=== PATIENT | female | born 1975 | race Caucasian/White ===

== ENCOUNTER 2023-07-19 03:21 | Emergency (ER) | payer OTHER, SELFPAY ==
[2023-07-19 03:26] VITALS: BP 132/84; PULSE 84; RESP 16; TEMP 36.3; O2SAT 99
--- NOTE | 2023-07-19 03:39 | CRLHL7_ITS ---
For Patients: As a result of the Century Cures Act, medical imaging exams and procedure reports are released immediately into your electronic medical record. You may view this report before your referring provider. If you have questions, please contact your health care provider. INDICATION: Syncope. Loss of consciousness. TECHNIQUE: CT head without contrast. COMPARISON: None. FINDINGS: CSF spaces: Within normal limits for age. Brain parenchyma and extra-axial spaces: The crouch-white differentiation is normal. No sign of mass, hemorrhage, or midline shift. No extra-axial fluid collection. Skull base and calvarium: The visualized paranasal sinuses and mastoid air cells demonstrate no acute or significant findings. The visualized orbits are grossly unremarkable. No skull fractures. IMPRESSION: Unremarkable noncontrast head CT. Please note that all CT scans at this facility use dose modulation, iterative reconstruction, and/or weight-based dosing when appropriate to reduce radiation dose to as low as reasonably achievable. Dictated by Emiliano Ventura MD @ 07/19/2023 4:45:59 AM (Electronically Signed)
--- NOTE | 2023-07-19 03:40 | ED.SYNCOPE ---
HPI - Syncope General Chief Complaint: Syncope/Fainted Stated Complaint: Syncope Time Seen by Provider: 07/19/23 03:39 History of Present Illness HPI narrative: Patient is a 47-year-old woman who was sleeping and got up to apparently use the restroom and lost consciousness skin and fell to the ground. She is not injured in any way. She has had no fevers no chills no night sweats no neurologic symptoms since the episode. She was helped up by her but is brought in by EMS. She has had no similar symptoms previously and has very little recall of the knee injury. Patient has had no similar symptoms. She now feels fine. The episode occurred immediately prior to coming in. She is not have any seizure activity or postictal symptoms. Patient did take her melatonin THC gummy approximately 3 hours ago. Related Data Home Medications Medication Instructions Recorded Confirmed diazepam 5 mg tablet 5 mg PO DAILY PRN 07/19/23 07/19/23 prednisone 10 mg tablet PO 07/19/23 Allergies Allergy/AdvReac Type Severity Reaction Status Date / Time No Known Drug Allergies Allergy Verified 06/24/23 15:44 Review of Systems Status of ROS: Reports: 10 or more systems reviewed and unremarkable except as noted in History and below [facility] Medical History (Updated 07/19/23 @ 04:58 by Anirudh Shultz MD) Menieres disease ?H81.09 - Meniere's disease, unspecified ear (ICD-10) Social History Smoking Status: Never smoker Second hand tobacco smoke exposure: No Non-prescribed substance use: marijuana (any form) service: No Exam Narrative: Exam Narrative: EXAM GENERAL: Patient appears comfortable and well. EYES: No scleral icterus. ENT: Tympanic membranes and oropharynx normal. THYROID: no thyroid nodules or thyromegaly. LYMPH: No supraclavicular or cervical lymphadenopathy. SKIN: Visible skin seen during exam normal or with benign process only. EXT: No dependent lower extremity pedal edema. HEART: Regular rate and rhythm with no murmurs, rubs, or gallops. LUNGS: Clear to auscultation bilaterally with no crackles or wheezes. ABD: Soft, non tender, non distended. PSYCH: Good eye contact, speech is not pressured. Neurologic cranial nerves 2-12 grossly intact no focal defects. Const: Vital Signs, click to edit/add: Vital Signs - 24 hr 07/19/23 03:26 Temperature 97.3 F L Pulse Rate [Left P ulse Oximeter] 84 Respiratory Rate 16 Blood Pressure [Ri ght Upper Arm] 132/84 Pulse Oximetry 99 Oxygen Delivery Me thod Room Air Course Course ED Course: Patient seen and examined. She appears to be completely neurologically intact. Begin workup with CT of the head EKG troponin D-dimer CBC basic metabolic panel UA. Vital Signs Vital signs: Initial Vital Signs Temperature 97.3 F L 07/19/23 03:26 Temperature Source Temporal Artery Scan 07/19/23 03:26 Pulse Rate 84 07/19/23 03:26 Pulse Rhythm Regular 07/19/23 03:26 Respiratory Rate 16 07/19/23 03:26 Blood Pressure 132/84 07/19/23 03:26 Blood Pressure Mean 100 07/19/23 03:26 Blood Pressure Position Semi-Fowlers 07/19/23 03:26 Pulse Oximetry 99 07/19/23 03:26 Oxygen Delivery Method Room Air 07/19/23 03:26 Vital Signs Temperature 97.3 F L 07/19/23 03:26 Pulse Rate 84 07/19/23 03:26 Respiratory Rate 16 07/19/23 03:26 Blood Pressure 132/84 07/19/23 03:26 Pulse Oximetry 99 07/19/23 03:26 Oxygen Delivery Method Room Air 07/19/23 03:26 Temperature 97.3 F L 07/19/23 03:26 Pulse Rate 84 07/19/23 03:26 Respiratory Rate 16 07/19/23 03:26 Blood Pressure 132/84 07/19/23 03:26 Pulse Oximetry 99 07/19/23 03:26 Oxygen Delivery Method Room Air 07/19/23 03:26 MDM - Syncope MDM Narrative Medical decision making narrative: Patient is a 47-year-old woman who got up in the middle night for unclear reasons and subsequently lost consciousness. She fell to the ground her went to check on her found her to be is not responsive for a few seconds before regaining her usual level of functioning. We did do a thorough syncope workup including D-dimer troponin CBC basic metabolic panel CT of the head EKG. Workup is unremarkable. EKG does show borderline QT interval which I do not think is clinically relevant. This time reassurance is offered she will follow-up with her primary physician. She feels well and is comfortable being discharged home. Differential Diagnosis Differential diagnosis: Likely syncope due to orthostatic hypotension, vasovagal syncope, complete atrioventricular block, subarachnoid hemorrhage, pulmonary embolism and dehydration Lab Data Labs: Lab Results 07/19/23 07/19/23 Range/Units 04:00 04:03 WBC 7.03 (4.50-11.00) K/uL RBC 4.48 (4.00-5.20) m/uL Hgb 13.0 (12.0-16.0) gm/dL Hct 40.1 (33.0-51.0) % MCV 90 (80-100) fL MCH 29 (26-34) pg MCHC 32 (32-36) gm/dL RDW Coeff of Herman 13.1 (11.5-15.5) % Plt Count 282 (140-440) K/uL Neut % (Auto) 54.4 (42.0-72.0) % Lymph % (Auto) 30.2 (20-44) % [place] % (Auto) 11.2 H (0.0-11.0) % Eos % (Auto) 3.1 (0.0-7.0) % Baso % (Auto) 0.4 (0.0-3.0) % Neut # (Auto) 3.82 (1.7-7.0) K/uL Lymph # (Auto) 2.12 (0.90-2.90) K/uL [place] # (Auto) 0.80 (0.00-0.90) K/UL Eos # (Auto) 0.22 (0.00-0.50) K/uL Baso # (Auto) 0.03 (0.00-0.30) K/uL Abs Immat Gran (auto) 0.05 (0.00-0.30) K/uL Imm/Tot Granulo (auto) 0.7 % D-Dimer Quant (PE/DVT) 0.28 (0.00-0.50) ug/ml Sodium 136 (135-149) mmol/L Potassium 4.0 (3.6-5.1) mmol/L Chloride 102 (96-114) mmol/L Carbon Dioxide 24 (20-32) mmol/L Anion Gap 10 (7-15) mEq/L BUN 14 (5-24) mg/dL Creatinine 0.7 (0.5-1.5) mg/dL Estimated GFR 107 ml/min Glucose 110 (60-115) mg/dL Calcium 9.4 (8.4-10.6) mg/dL Troponin I < 0.01 L (0.01-0.04) ng/mL Urine Color Yellow (Yellow) Urine Appearance Clear (Clear) Urine pH 5.5 (5.0-8.5) Ur Specific [place] 1.020 (1.000-1.030) Urine Protein Negative (Negative) Urine Glucose (UA) Negative (Negative) Urine Ketones Negative (Negative) Urine Blood Negative (Negative) Urine Nitrite Negative (Negative) Urine Bilirubin Negative (Negative) Urine Urobilinogen 0.2 (0.2-1.0) Ur Leukocyte Esterase Negative (Negative) Discharge Plan Discharge Clinical Impression: Syncope Patient Disposition: Home, Self-Care Condition: Stable Instructions: Syncope (ED) Additional Instructions: Continue current care Monitor for change in symptoms Follow-up with your doctor as discussed. Activity Level: No Restrictions Discharge Diet: Regular Prescriptions: No Action prednisone 10 mg tablet PO diazepam 5 mg tablet 5 mg PO DAILY PRN Follow Up/Referrals: Provider,Not a Local [Primary Care Provider] - Stand Alone Forms: Jiff Info Instructions
[2023-07-19 04:05] LABS: Appearance Urine Clear (Clear); Bilirubin Urine Negative (Negative); Blood Urine Negative (Negative); Color Urine Yellow (Yellow); Glucose Urine Negative (Negative); Ketones Urine Negative (Negative); Leukocyte Esterase Urine Negative (Negative); Nitrite Urine Negative (Negative); Protein Urine Negative (Negative); Urobilinogen Urine 0.2 (0.2-1.0); pH Urine 5.5 (5.0-8.5)
[2023-07-19 04:22] LABS: Basophils Absolute Auto 0.03 K/uL (0.00-0.30); Basophils Percent Auto 0.4 % (0.0-3.0); Eosinophils Absolute Auto 0.22 K/uL (0.00-0.50); Eosinophils Percent Auto 3.1 % (0.0-7.0); Hematocrit 40.1 % (33.0-51.0); Immature Granulocytes Abs Auto 0.05 K/uL (0.00-0.30); Immature Granulocytes Pct Auto 0.7 %; Lymphocytes Absolute Auto 2.12 K/uL (0.90-2.90); Lymphocytes Percent Auto 30.2 % (20-44); Mean Corpuscular HGB Conc 32 gm/dL (32-36); Mean Corpuscular Hemoglobin 29 pg (26-34); Mean Corpuscular Volume 90 fL (80-100); Monocytes Percent Auto 11.2 % (0.0-11.0); Neutrophils Absolute Auto 3.82 K/uL (1.7-7.0); Neutrophils Percent Auto 54.4 % (42.0-72.0); Platelet Count* 282 K/uL (140-440); RDW Coefficient of Variation % 13.1 % (11.5-15.5); Red Blood Count 4.48 m/uL (4.00-5.20); White Blood Count* 7.03 K/uL (4.50-11.00)
--- NOTE | 2023-07-19 04:24 | ED.NURSE ---
Orthostatic Blood Pressures Supine 116/73, HR85 Sitting 118/72, HR 96 Standing 119/92, HR 99 No reported symptoms
[2023-07-19 04:25] LABS: Chloride* 102 mmol/L (96-114); Sodium* 136 mmol/L (135-149)
[2023-07-19 04:28] LABS: Anion Gap 10 mEq/L (7-15); Blood Urea Nitrogen* 14 mg/dL (5-24); Carbon Dioxide* 24 mmol/L (20-32); Creatinine* 0.7 mg/dL (0.5-1.5); Estimated Glomerular Filt Rate 107 ml/min
[2023-07-19 04:29] LABS: Calcium* 9.4 mg/dL (8.4-10.6); Glucose* 110 mg/dL (60-115); Slide Review Reflex No
[2023-07-19 04:30] LABS: D Dimer Quantitative* 0.28 ug/ml (0.00-0.50)
--- NOTE | 2023-07-19 04:47 | ED.NURSE ---
Patient independently ambulatory to bathroom.
[2023-07-19 04:48] LABS: Troponin I* < 0.01 ng/mL (0.01-0.04)
== END 2023-07-19 05:12 | disposition home or self-care (01) ==
PROVIDERS: Emergency Provider Internal Medicine
DX: R55 Syncope and collapse (principal); W19.XXXA Unspecified fall, initial encounter
CPT/HCPCS: 36415; 70450; 80048; 81003; 84484; 85025; 85379; 93005; 99283; 99284; A0425; A0427